=== PATIENT | male | born 1955 | race Caucasian/White ===

== ENCOUNTER 2018-02-28 20:09 | Emergency (ER) | payer OTHER ==
[2018-02-28 20:23] VITALS: BP 125/78; PULSE 88; TEMP 97.8; BMI 24.5
--- NOTE | 2018-02-28 20:32 | PDOC ---
History of Present Illness - General History Source: Patient, Old Records Exam Limitations: No Limitations - History of Present Illness Initial Comments: 02/28/18 20:37 The patient is a 63 year old male with a past medical history of GERD, small bowel obstruction (conservatively managed in January 2016) who presents to the emergency department with right elbow pain status post mechanical fall off of a ladder this morning. He describes his pain as soreness, non radiating. He endorses full range of motion of his right elbow. He states that he is up to date on his tetanus and has had small bowel obstructions in the past after taking NSAIDs. He denies any head trauma. <Rafael Wei - Last Filed: 02/28/18 21:28> <Swathi Cordero - Last Filed: 02/28/18 21:36> - General Chief Complaint: Injury Stated Complaint: RT ELBOW PAIN, ABRASION Time Seen by Provider: 02/28/18 20:15 Past History <Rafael Wei - Last Filed: 02/28/18 21:28> - Past Medical History Anemia: No COPD: No GI Disorders: Yes (SBO) Hypercholesterolemia: Yes Psychiatric Problems: Yes (ANXIETY/DEPRESSION) Other medical history: LATERAL EPICONDYLITIS BOTH ELBOWS - Surgical History Orthopedic Surgery: Yes (elbow surgery x 2) - Immunization History Td Vaccination: (05/2011) Immunization Up to Date: Yes - Suicide/Smoking/Psychosocial Hx Smoking Status: No Smoking History: Never smoked Have you smoked in the past 12 months: No Number of Cigarettes Smoked Daily: 0 Information on smoking cessation initiated: No Hx Alcohol Use: No Drug/Substance Use Hx: No Substance Use Type: Alcohol Hx Substance Use Treatment: No <Swathi Cordero - Last Filed: 02/28/18 21:36> - Past Medical History Allergies/Adverse Reactions: Allergies Allergy/AdvReac Type Severity Reaction Status Date / Time NSAIDS (Non-Steroidal Allergy Verified 02/28/18 20:11 Anti-Inflamma Home Medications: Ambulatory Orders Bupropion HCl [Wellbutrin Xl -] 150 mg PO DAILY 02/10/16 Rosuvastatin Calcium [Crestor] 10 mg PO DAILY 05/16/16 Review of Systems - Review of Systems Able to Perform ROS?: Yes Comments:: 02/28/18 20:37 GENERAL/CONSTITUTIONAL: No fever or chills. No weakness. HEAD, EYES, EARS, NOSE AND THROAT: No change in vision. No ear pain or discharge. No sore throat. GASTROINTESTINAL: No nausea, vomiting, diarrhea or constipation. GENITOURINARY: No dysuria, frequency, or change in urination. CARDIOVASCULAR: No chest pain or shortness of breath. RESPIRATORY: No cough, wheezing, or hemoptysis. MUSCULOSKELETAL: (+) Right elbow pain No joint or muscle swelling or pain. No neck or back pain. SKIN: No rash NEUROLOGIC: No headache, vertigo, loss of consciousness, or change in strength/ sensation. ENDOCRINE: No increased thirst. No abnormal weight change. HEMATOLOGIC/LYMPHATIC: No anemia, easy bleeding, or history of blood clots. ALLERGIC/IMMUNOLOGIC: No hives or skin allergy. <Rafael Wei - Last Filed: 02/28/18 21:28> *Physical Exam - Vital Signs Last Vital Signs Temp Pulse Resp BP Pulse Ox 97.8 F 88 16 125/78 100 02/28/18 20:10 02/28/18 20:10 02/28/18 20:10 02/28/18 20:10 02/28/18 20:10 <Rafael Wei - Last Filed: 02/28/18 21:28> - Vital Signs Last Vital Signs Temp Pulse Resp BP Pulse Ox 97.8 F 88 16 125/78 100 02/28/18 20:10 02/28/18 20:10 02/28/18 20:10 02/28/18 20:10 02/28/18 20:10 - Physical Exam Comments: GENERAL: Awake, alert, and fully oriented, in no acute distress HEAD: No signs of trauma EYES: PERRLA, EOMI, sclera anicteric, conjunctiva clear ENT: Auricles normal inspection, hearing grossly normal, nares patent, oropharynx clear without exudates. Moist mucosa NECK: Normal ROM, supple, no lymphadenopathy, JVD, or masses LUNGS: Breath sounds equal, clear to auscultation bilaterally. No wheezes, and no crackles HEART: Regular rate and rhythm, normal S1 and S2, no murmurs, rubs or gallops ABDOMEN: Soft, nontender, normoactive bowel sounds. No guarding, no rebound. No masses EXTREMITIES: +Abrasions to the R elbow, slight effusion. FROM without pain. No bony tenderness. No deformity. Remainder of extremities with normal range of motion, no edema. No clubbing or cyanosis. No cords, erythema, or tenderness NEUROLOGICAL: Cranial nerves II through XII grossly intact. Normal speech, normal gait SKIN: Warm, Dry, normal turgor, no rashes or lesions noted. <Swathi Cordero - Last Filed: 02/28/18 21:36> ED Treatment Course - RADIOLOGY Radiograph Interpretation: 02/28/18 21:28 Renetta Babcock Name: NEREYDA GLEZ DEPARTMENT OF RADIOLOGY Phys: Swathi Cordero MD : 1955 Age: 63 Sex: M [facility] Acct: [id number] Loc: [address] [place]. Exam Date: 02/28/18 Status: REG AGUSTIN Pereyra [id number] Unit Number: [id number] EXAM#: TYPE/EXAM: RESULT: [id number] RAD/ELBOW-RIGHT HISTORY PROVIDED: Fall. AP, oblique and lateral projections of the right elbow reveals no evidence of fracture, dislocation or acute bone or joint abnormalities. IMPRESSION: No fracture or acute pathology Reported By: Jef Harris MD 02/28/182117 Swathi Cordero Technologist: Landon Webb Transcribed Date/Time: 02/28/182117 Chief Communications Officer: Jef Harris Printed Date/Time: By: Signed by: Jef Harris Signed on: 28-Feb-2018 21:18 <Rafael Wei - Last Filed: 02/28/18 21:28> Medical Decision Making - Medical Decision Making Local wound care to abrasions- bacitracin and xeroform gauze. Sterile gauze dressing. Instructed patient to remove it tomorrow to allow the wound to dry. Stable for DC home. <Swathi Cordero - Last Filed: 02/28/18 21:36> *DC/Admit/Observation/Transfer - Attestations Scribe Attestion: 02/28/18 20:38 Documentation prepared by Rafael Wei, acting as medical secretary teacher for Swathi Cordero MD. <Rafael Wei - Last Filed: 02/28/18 21:28> - Discharge Dispostion Decision to Admit order: No <Swathi Cordero - Last Filed: 02/28/18 21:36> Diagnosis at time of Disposition: Abrasion of elbow Qualifiers: Encounter type: initial encounter Laterality: right Qualified Code(s): S50.311A - Abrasion of right elbow, initial encounter - Discharge Dispostion Disposition: HOME Condition at time of disposition: Stable - Patient Instructions Printed Discharge Instructions: DI for Abrasion
== END 2018-02-28 21:30 | disposition home or self-care (01) ==
LOC: FER 20:09
DX: S50.311A Abrasion of right elbow, initial encounter (principal); W11.XXXA Fall on and from ladder, initial encounter; Y93.89 Activity, other specified; Y92.9 Unspecified place or not applicable; F41.8 Other specified anxiety disorders
CPT/HCPCS: 73070-TC-RT-FY; 99282-25